=== PATIENT | female | born 1975 | race Caucasian/White ===

== ENCOUNTER → 2016-04-18 | Outpatient (CLI) | payer OTHER ==
[~2016-04-18] MED LIST: CHOL1CAP34 PO; COLC1TAB15 PO; GABA300C5 PO; HYDR200T3 PO; IBUP800T23 PO; MOBI15TA PO; MULT1TAB84 PO; PRED5TAB PO; TOPA50TA7 PO; TRAZ100T4 PO; WELLTAB39 PO
--- NOTE | 2016-04-18 09:31 | EKG ---
Date Performed: 04/18/2016 Time Performed: 08:28:48 PTAGE: 40 years EKG: Sinus rhythm . Poor R wave progression - probable normal variant Low QRS voltages in precordial leads Borderline E CG PREVIOUS TRACING : 09/10/2015 11.26 No significant change from previous tracing noted. DOCTOR: Flaco Haro Interpretating Date/Time 04/18/2016 09:29:48
== END ==
LOC: HCAV 08:16
DX: F42.2 Mixed obsessional thoughts and acts (principal); F41.1 Generalized anxiety disorder; F31.9 Bipolar disorder, unspecified; R94.31 Abnormal electrocardiogram [ECG] [EKG]
CPT/HCPCS: 93005

== ENCOUNTER 2016-12-18 00:13 | Observation (INO) | payer OTHER ==
[~2016-12-18] VITALS: Ht 180.3 cm; Wt 110.0 kg
[2016-12-18] VITALS (11 sets, daily range): BP systolic 102–195; BP diastolic 54–104; PULSE 49–66; RESP 16–20; TEMP 98–98.6; O2SAT 97–99
[~2016-12-18 00:13] MED LIST changes: -COLC1TAB15 PO; -MOBI15TA PO
[2016-12-18] MEDS ORDERED: ASPIRIN 81 MG CHEW TAB PO ONE (01:30)
[2016-12-18] MEDS ORDERED: SODIUM CHLOR 0.9% 1000 ML INJ 1,000 ML IV SCH (01:30)
[2016-12-18] MEDS ORDERED: SODIUM CHLORIDE 0.9% FLUSH 10 ML FLUSH IVF PRN (01:30)
[2016-12-18] MEDS ORDERED: BUPR150T3 PO ×2 (01:47)
[2016-12-18] MEDS ORDERED: MULTTAB67 PO ×2 (01:54)
--- NOTE | 2016-12-18 01:59 | RADRPT ---
EXAM DATE/TIME: 12/18/2016 01:30 [place] COMPARISON: No previous studies available for comparison. INDICATIONS : Chest pain with left arm pain MEDICAL HISTORY : Hypercholesterolemia. Hypertension TIA, Uterine asnd cervical cancer SURGICAL HISTORY : Hysterectomy. ENCOUNTER: Initial ACUITY: 1 day PAIN SCORE: 6/10 LOCATION: Bilateral chest FINDINGS: A single view of the chest demonstrates the lungs to be symmetrically aerated without evidence of mas s, infiltrate or effusion. The cardiomediastinal contours are unremarkable. Osseous structures are intact. CONCLUSION: No acute disease. Markus Clayton MD on December 18, 2016 at 1:57 Board Certified Radiologist. This report was verified electronically.
[2016-12-18] MEDS ORDERED: PAXI10TA2 PO ×2 (02:00)
[2016-12-18] MEDS ORDERED: HYDR-3133 PO ×2 (02:00)
[2016-12-18] MEDS ORDERED: COLE1TAB2 PO ×2 (02:00)
[2016-12-18] MEDS ORDERED: LYRI75CA PO ×2 (02:00)
[2016-12-18] MEDS ORDERED: ULTR50TA5 PO ×2 (02:00)
[2016-12-18 02:21] LABS: APTT (PATIENT) 26.1 SEC (24.3-30.1); PROTHROMBIN TIME - PATIENT 10.9 SEC (9.8-11.6)
[2016-12-18] MEDS ORDERED: ONDANSETRON HCL 4 MG/2 ML VIAL IV ONE (02:30)
[2016-12-18 02:34] LABS: ALT (GPT) 35 U/L (10-53); ANION GAP 7 MEQ/L (5-15); AST (GOT) 16 U/L (15-37); BLOOD UREA NITROGEN 11 MG/DL (7-18); CHLORIDE 105 MEQ/L (98-107); GLOMERULAR FILTRATION RATE 68 ML/MIN (>89); POTASSIUM 3.4 MEQ/L (3.5-5.1); SODIUM (NA) 140 MEQ/L (136-145)
[2016-12-18 02:38] LABS: ALKALINE PHOSPHATASE 87 U/L (45-117); TOTAL BILIRUBIN ADULT 0.3 MG/DL (0.2-1.0)
[2016-12-18 02:59] LABS: AUTOMATED NEUTROPHIL # 7.3 TH/MM3 (1.8-7.7); BASOPHIL % 0.4 % (0.0-2.0); EOSINOPHIL # 0.1 TH/MM3 (0-0.4); EOSINOPHIL % 1.1 % (0.0-4.0); HEMATOCRIT 37.9 % (35.0-46.0); HEMO FLAGS DIFF FINAL; LYMPH % 22.9 % (9.0-44.0); LYMPHOCYTE # 2.4 TH/MM3 (1.0-4.8); MEAN CELL VOLUME 89.5 FL (80.0-100.0); MEAN CORPUSCULAR HEMOGLOBIN 31.4 PG (27.0-34.0); MEAN CORPUSCULAR HGB CONC 35.1 % (32.0-36.0); MONO % 4.8 % (0.0-8.0); NEUT % 70.8 % (16.0-70.0); PLATELET COUNT 232 TH/MM3 (150-450); RED BLOOD COUNT 4.24 MIL/MM3 (4.00-5.30); WHITE BLOOD COUNT 10.4 TH/MM3 (4.0-11.0)
[2016-12-18] MEDS ORDERED: MORPHINE SULFATE 4 MG/ML INJ IV PUSH ONE ×2 (04:15→12:15)
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
[2016-12-18] MEDS ORDERED: SODIUM CHLORIDE 0.9% FLUSH 10 ML FLUSH IV FLUSH PRN (04:45)
--- NOTE | 2016-12-18 07:05 | EKG ---
Date Performed: 12/18/2016 Time Performed: 00:46:28 PTAGE: 41 years EKG: SINUS BRADYCARDIA LOW QRS VOLTAGE IN PRECORDIAL LEADS BORDERLINE ECG PREVIOUS TRACING : 04/18/2016 08.28 No significant change from previous tracing noted. DOCTOR: Flaco Haro Interpretating Date/Time 12/18/2016 07:03:34
[2016-12-18] MEDS ORDERED: NITROGLYCERIN 0.4 MG SL 25 TABS/BTL SL PRN (08:00)
[2016-12-18] MEDS: ONDANSETRON HCL 4 MG/2 ML VIAL IV PUSH PRN ×2 (08:07→13:23)
[2016-12-18] MEDS: ACETAMINOPHEN 500 MG CPLT PO PRN ×2 (08:07→12:38)
[2016-12-18] MEDS ORDERED: ASPIRIN 325 MG TAB PO SCH (09:00)
[2016-12-18] MEDS ORDERED: SODIUM CHLORIDE 0.9% FLUSH 10 ML FLUSH IV FLUSH SCH (09:00)
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
[2016-12-18] MEDS ORDERED: HYDROXYCHLOROQUINE SULFATE 200 MG TAB PO SCH (09:30)
[2016-12-18] MEDS ORDERED: PARoxetine HCL 20 MG TAB PO SCH (09:30)
[2016-12-18] MEDS ORDERED: hydrOXYzine HCL 25 MG TAB PO SCH (09:30)
[2016-12-18] MEDS ORDERED: buPROPion HCL 150 MG SUSTAINED RELEASE TAB PO SCH (09:30)
[2016-12-18] MEDS ORDERED: COLESTIPOL PO SCH (09:30)
[2016-12-18] MEDS ORDERED: predniSONE 5 MG TAB PO SCH (09:30)
[2016-12-18] MEDS ORDERED: MULTIVITAMIN TAB PO SCH (09:30)
[2016-12-18] MEDS ORDERED: TOPA100T11 PO ×2 (09:32)
[2016-12-18] MEDS ORDERED: PILL SPLITTER OTHER PRN (10:15)
--- NOTE | 2016-12-18 10:44 | EKG ---
Date Performed: 12/18/2016 Time Performed: 07:59:06 PTAGE: 41 years EKG: SINUS BRADYCARDIA LOW QRS VOLTAGE IN PRECORDIAL LEADS BORDERLINE ECG NO SIG CHANGE PREVIOUS TRACING : 12/18/2016 05.03 DOCTOR: Taye Davis Interpretating Date/Time 12/18/2016 10:42:27
--- NOTE | 2016-12-18 10:44 | EKG ---
Date Performed: 12/18/2016 Time Performed: 05:03:22 PTAGE: 41 years EKG: SINUS BRADYCARDIA LOW QRS VOLTAGE IN PRECORDIAL LEADS MINIMAL VOLTAGE CRITERIA FOR LVH, CON PASSENGER COACH DRIVER NORMAL VARIANT POOR R WAVE PROGRESSION BORDERLINE ECG BUT NO SIG CHANGE PREVIOUS TRACING : 12/18/2016 00.46 DOCTOR: Taye Davis Interpretating Date/Time 12/18/2016 10:43:35
[2016-12-18] MEDS ORDERED: KETOROLAC TROMETHAMINE 30 MG/ML (IVP) VIAL IV PUSH ONE (15:00)
[2016-12-18] MEDS ORDERED: KETO10 PO (16:32)
[2016-12-18] MEDS ORDERED: ONDA1TAB17 PO (16:32)
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
[2016-12-19] MEDS ORDERED: IBUP800T23 PO (09:26)
[2016-12-19] MEDS ORDERED: CEPH-460 PO (19:27)
== END 2016-12-18 16:54 | disposition home or self-care (01) ==
LOC: NEPE 00:13 → NEDA 02:52 → NEPGCP 05:19
PROVIDERS: ADMIT Internal Medicine Interventional Cardiology; ATTEND Internal Medicine Interventional Cardiology
DX: R07.89 Other chest pain (principal); G44.209 Tension-type headache, unspecified, not intractable; I10 Essential (primary) hypertension; R94.31 Abnormal electrocardiogram [ECG] [EKG]; E78.5 Hyperlipidemia, unspecified; M79.7 Fibromyalgia; Z86.73 Personal history of transient ischemic attack (TIA), and cerebral infarction without residual deficits
CPT/HCPCS: 71010; 80053; 84484; 85025; 85610; 85652; 85730; 93005; 96361; 96374; 96375; 96376; 99285; G0378; J1885; J2270; J2405; J7030; J7512

== ENCOUNTER 2016-12-19 18:15 | Emergency (ER) | payer OTHER ==
[~2016-12-19] VITALS: Ht 180.3 cm; Wt 112.0 kg
[~2016-12-19 18:15] MED LIST changes: +BUPR150T3 PO; +COLE1TAB2 PO; +HYDR-3133 PO; +KETO10 PO; +LYRI75CA PO; +MULTTAB67 PO; +ONDA1TAB17 PO; +PAXI10TA2 PO; +TOPA100T11 PO; +ULTR50TA5 PO
[2016-12-19 18:45] VITALS: BP 128/88; PULSE 58; RESP 16; TEMP 99.3; O2SAT 98
[2016-12-19] MEDS ORDERED: CEPH-460 PO (19:27)
[2016-12-19] MEDS ORDERED: TETANUS/DIPHTHERIA TOXOID ADULT 0.5 ML VIAL IM ONE (19:30)
[2016-12-19] MEDS ORDERED: BUPIVACAINE HCL PF 0.5% 10 ML VIAL INFIL ONE (19:30)
[2016-12-19] MEDS ORDERED: LIDOCAINE HCL 1% 50 ML VIAL INFIL ONE (19:30)
--- NOTE | 2016-12-19 19:31 | PD ---
HPI Chief Complaint: Foreign Body Time Seen by Provider: 19:11 Travel History International Travel<30 days: No Contact w/Intl Traveler<30days: No Traveled to known affect area: No History of Present Illness HPI 41-year-old female presents to the emergency room for evaluation of foreign body to her right second finger that occurred about 1.5 hours prior to arrival. Patient was reaching into the bed of her truck when she accidentally stabbed by a fish hook. She soaked it in alcohol and Betadine. States she tried to pull it through but the alice was stuck. Unknown last tetanus. No history of diabetes. No significant pain or loss of range of motion. PFSH Past Medical History Arthritis: Yes Autoimmune Disease: No Blood Disorders: No Bipolar Disorder: Yes Anxiety: Yes Depression: Yes Heart Rhythm Problems: No Cancer: Yes (CERVIX AND UTERUS) Cardiac Catheterization: No (HX OLD SEPTAL INFARCT REPORTED) Cardiovascular Problems: Yes (CHEST PAIN FOR TWO DAYS) High Cholesterol: No Chemotherapy: No Chest Pain: Yes Congestive Heart Failure: Yes Cerebrovascular Accident: Yes Diabetes: No Diminished Hearing: No GERD: No Glaucoma: No Genitourinary: No Headaches: Yes Hepatitis: No Hiatal Hernia: No Herniated Disk: Yes Hypertension: Yes Immune Disorder: No Medical other: Yes (ARTHRITIS, SEIZURES 1998) Musculoskeletal: No Psychiatric: Yes ("ADHD,PTSD,MANIC DEPRESSION,BIPOLAR") Reproductive: Yes (ENDOMETRIOSIS) Respiratory: Yes (SLEEP APNEA, INSTRUCTED TO BRING C PAP) Migraines: No Myocardial Infarction: Yes (HX OLD SEPTAL INFARCT REPORTED) Radiation Therapy: No Seizures: Yes Sleep Apnea: No Thyroid Disease: No Ulcer: No Tetanus Vaccination: Unknown Influenza Vaccination: No PNEUMOCCOCAL Vaccine (Year): 2 ?: Not LMP: 2004 : 1 Para: 1 Miscarriage: 0 : 0 Dilation and Curettage (D&C): Yes Past Surgical History Abdominal Surgery: Yes Appendectomy: No Cardiac Surgery: No Cholecystectomy: No Coronary Artery Bypass Graft: No Ear Surgery: Yes Endocrine Surgery: No Eye Surgery: No Genitourinary Surgery: Yes (bladder sling) Gynecologic Surgery: Yes (LEEP & D&C, HYSTERECTOMY ) Hysterectomy: Yes Oral Surgery: No Pacemaker: No Thoracic Surgery: No Other Surgery: Yes Social History Alcohol Use: No Tobacco Use: No Substance Use: No Allergies-Medications (Allergen,Severity, Reaction): Coded Allergies: lorazepam (Unverified Allergy, Severe, "CAN'T REMEMBER", 12/19/16) "PT STATES NOT REALLY ALLERGIC,BUT SIDE EFFECTS ARE ROUGH" Reported Meds & Prescriptions Reported Meds & Active Scripts Active Keflex (Cephalexin) 500 Mg Capsule 500 Mg PO Q8H 7 Days Ibuprofen 800 Mg Tab 800 Mg PO Q8H PRN Ondansetron (Ondansetron HCl) 8 Mg Tab 8 Mg PO TID Ketorolac (Ketorolac Tromethamine) 10 Mg Tab 10 Mg PO Q6HR PRN 3 Days Vitamin D3 (Cholecalciferol) 50,000 Unit Cap 50,000 Units PO Q7D Prednisone 5 Mg Tab 5 Mg PO DAILY Hydroxychloroquine (Hydroxychloroquine Sulfate) 200 Mg Tab 200 Mg PO BID Takw with food Reported Topamax (Topiramate) 100 Mg Tab 100 Mg PO TID Ultram (Tramadol HCl) 50 Mg Tab 50 Mg PO BID PRN Lyrica (Pregabalin) 75 Mg Cap 75 Mg PO BID Colestipol (Colestipol HCl) 1 Gram Tab 6 Gm PO BID Paxil (Paroxetine HCl) 10 Mg Tab 20 Mg PO DAILY Paxil (Paroxetine HCl) 10 Mg Tab 10 Mg PO DAILY Hydroxyzine HCl 25 Mg Tab 25 Mg PO BID Multiple Vitamin 1 Tab 1 Tab PO DAILY Bupropion HCl ER 24 HR (Bupropion HCl) 150 Mg Tab 150 Mg PO DAILY Review of Systems Except as stated in HPI: all other systems reviewed are Neg Physical Exam Narrative GENERAL: Well-nourished, well-developed female in no acute distress. Afebrile. Ambulatory. SKIN: Focused skin assessment warm/dry. There is a fish hook superficially in the pulp space of the right second finger with the fishhook tip sticking out the tip of the finger. Nonbleeding. No erythema or lymphangitis. HEAD: Normocephalic. EYES: No scleral icterus. No injection or drainage. NECK: Supple, trachea midline. No JVD or lymphadenopathy. CARDIOVASCULAR: Regular rate and rhythm without murmurs, gallops, or rubs. RESPIRATORY: Breath sounds equal bilaterally. No accessory muscle use. EXTREMITY: Limited range of motion of the right second finger secondary to pain. Less than 2 second capillary refill distally. No significant edema. Data Data Last Documented VS Vital Signs Date Time Temp Pulse Resp B/P (MAP) Pulse Ox O2 Delivery O2 Flow Rate FiO2 12/19/16 18:45 99.3 58 16 128/88 (101) 98 Orders Orders Bupivacaine Pf 0.5% Inj (Marcaine Pf 0.5 (12/19/16 19:30) Lidocaine 1% Inj (50 Ml) (Xylocaine 1% I (12/19/16 19:30) Tetanus/Diphtheria Tox Adult (Tetanus/Di (12/19/16 19:30) MDM Medical Decision Making Medical Screen Exam Complete: Yes Emergency Medical Condition: Yes Medical Record Reviewed: Yes Differential Diagnosis Soft tissue foreign body, contusion, laceration, cellulitis Narrative Course 41-year-old female presents to the emergency room for foreign body removal. Patient accidentally stuck a fish hook in her right second finger just prior to arrival. Physical exam reveals a superficial hook protruding through and through at the pulp space of the right second finger. Patient has full range of motion and is neurovascularly intact with less than 2 second capillary refill distally. [place] was removed without difficulty, see procedure note for details. Patient discharged with prescription for Keflex and told to follow -up with a primary care physician or return for worsening symptoms. She understands and agrees to plan. Procedures Procedure Narrative Foreign body removal: The area was prepped with Betadine. A digital block was performed using 50/50 combination of 1% lidocaine and 0.5% bupivacaine to anesthetize the area properly. A number 11 scalpel was used to extend the wound incision across the foreign body. The alice was pushed through and then. The hook was then pulled back out of the wound and wound was irrigated with normal saline. Patient tolerated procedure well. Dressing placed. Diagnosis Primary Impression: Soft tissues foreign body Referrals: Primary Care Physician Additional Instructions: Rest and drink plenty of fluids. Take Keflex as directed, until gone. Keep wound clean and dry. Apply triple antibiotic ointment daily. Follow up with a primary care physician. Return to emergency room for worsening symptoms, as discussed. Med/Other Pt SpecificInfo: Prescription(s) given Scripts Cephalexin (Keflex) 500 Mg Capsule 500 MG PO Q8H for Infection for 7 Days, #21 CAP 0 Refills Prov: Orlando Tomlin MD 12/19/16 Disposition: 01 DISCHARGE HOME Condition: Stable Marci Acevedo Dec 19, 2016 19:31
== END 2016-12-19 21:29 | disposition home or self-care (01) ==
LOC: PHEFT 18:15
DX: S60.450A Superficial foreign body of right index finger, initial encounter (principal); W45.8XXA Other foreign body or object entering through skin, initial encounter; I11.0 Hypertensive heart disease with heart failure; I25.2 Old myocardial infarction; I50.9 Heart failure, unspecified; M19.90 Unspecified osteoarthritis, unspecified site; Z85.42 Personal history of malignant neoplasm of other parts of uterus; Z86.73 Personal history of transient ischemic attack (TIA), and cerebral infarction without residual deficits
CPT/HCPCS: 10120; 64450; 90471; 90714